=== PATIENT | male | born 1975 | race Two or more races ===

== ENCOUNTER 2018-08-23 13:35 | Emergency (ER) | payer BC, OTHER ==
[~2018-08-23] VITALS: Ht 175.3 cm; Wt 79.4 kg
[2018-08-23 13:51] VITALS: BP 124/64
[2018-08-23] MEDS ORDERED: IBUPROFEN 600 MG TABLET. PO ONE (14:15)
--- NOTE | 2018-08-23 14:43 | PHYS DOC ---
Past Medical History Past Medical History: No Pertinent History Past Surgical History: No Surgical History Alcohol Use: Occasionally Drug Use: None Adult General Chief Complaint Chief Complaint: SORE THROAT HPI HPI Patient is a 42 year old male who presents with sore throat for the last 2 days. Temp is 99.3 today in the ED. He states he has been having some body aches and feeling overall like he is getting sick. Patient states he has had some nasal Review of Systems Review of Systems Constitutional: Denies fever or chills [] Eyes: Denies change in visual acuity, redness, or eye pain [] HENT: nasal congestion and sore throat [] Respiratory: Denies cough or shortness of breath [] Cardiovascular: No additional information not addressed in HPI [] GI: Denies abdominal pain, nausea, vomiting, bloody stools or diarrhea [] : Denies dysuria or hematuria [] Musculoskeletal: Denies back pain or joint pain [] Integument: Denies rash or skin lesions [] Neurologic: Denies headache, focal weakness or sensory changes [] Endocrine: Denies polyuria or polydipsia [] All other systems were reviewed and found to be within normal limits, except as documented in this note. Current Medications Current Medications Current Medications Medications (Trade) Dose Ordered Sig/Angie Start Time Stop Time Status Last Admin Dose Admin Ibuprofen (Motrin) 600 mg 1X ONCE 08/23/18 14:15 08/23/18 14:18 DC 08/23/18 14:28 600 MG Allergies Allergies Allergies Coded Allergies Type Severity Reaction Last Updated Verified No Known Drug Allergies 08/23/18 No Physical Exam Physical Exam Constitutional: Well developed, well nourished, no acute distress, non-toxic appearance. [] HENT: Normocephalic, atraumatic, bilateral external ears normal, oropharynx moist, no oral exudates, nose normal. Throat reddened without exudates.[] Eyes: PERRLA, EOMI, conjunctiva normal, no discharge. [] Neck: Normal range of motion, no tenderness, supple, no stridor. [] Cardiovascular:Heart rate regular rhythm, no murmur [] Lungs & Thorax: Bilateral breath sounds clear to auscultation [] Abdomen: Bowel sounds normal, soft, no tenderness, no masses, no pulsatile masses. [] Skin: Warm, dry, no erythema, no rash. [] Back: No tenderness, no CVA tenderness. [] Extremities: No tenderness, no cyanosis, no clubbing, ROM intact, no edema. [] Neurologic: Alert and oriented X 3, normal motor function, normal sensory function, no focal deficits noted. [] Psychologic: Affect normal, judgement normal, mood normal. [] Current Patient Data Vital Signs Vital Signs Date Time Temp Pulse Resp B/P (MAP) Pulse Ox O2 Delivery O2 Flow Rate FiO2 08/23/18 13:51 99.3 99 16 124/64 (84) 94 Room Air 99.3 Lab Values Laboratory Tests Test 08/23/18 14:19 Group A Streptococcus Rapid Negative (NEGATIVE) EKG EKG [] Radiology/Procedures Radiology/Procedures [] Course & Med Decision Making Course & Med Decision Making Patient is a 42 year old male who presents with sore throat for the last 2 days. Temp is 99.3 today in the ED. He states he has been having some body aches and feeling overall like he is getting sick. Patient states he has had some nasal congestion. Patient rates his over all pain a 8/10. Throat is red without exudates and slightly swollen. Patient denies chest pain, cough, ear pain, headache. Lungs are clear to auscultation. Ear tympanics are pearly white bilaterally. alert and oriented. skin pink warm and dry. Strep is negative. Patient is given a dose of Ibuprofen. Patient will need to follow up with primary care as soon as possible and return if he begin feeling worse. Patient should continue using otc cold medications and ibuprofen or Tylenol. Patient also should drink plenty of fluids. Staff Physician Addendum: I was working in the ER during the course of this patient's visit. I was available for consultation as needed, but I was not directly involved in the care of this patient. Dragon Disclaimer Dragon Disclaimer This electronic medical record was generated, in whole or in part, using a voice recognition dictation system. Departure Departure Impression: Primary Impression: Sore throat Disposition: 01 HOME, SELF-CARE Condition: STABLE Referrals: UNKNOWN PCP NAME (PCP) Patient Instructions: Sore Throat Additional Instructions: Patient will need to follow up with primary care as soon as possible and return if he begin feeling worse. Patient should continue using otc cold medications and ibuprofen or Tylenol. Patient also should drink plenty of fluids. BAFUS,PRIMO M EQUITIES ANALYST Aug 23, 2018 14:43 BHAVESH MON MD Aug 23, 2018 17:23
== END 2018-08-23 14:52 | disposition home or self-care (01) ==
LOC: ER 13:35
DX: J02.9 Acute pharyngitis, unspecified (principal); M79.18 Myalgia, other site
CPT/HCPCS: 87070; 87880; 99283